=== PATIENT | male | born 1940 | race Caucasian/White ===

== ENCOUNTER 2020-02-03 14:47 | Emergency (ER) | payer MEDICARE ==
[~2020-02-03] VITALS: Ht 182.9 cm; Wt 113.4 kg
[~2020-02-03 14:47] MED LIST: ALBU90OI INH; ALUMINUM ACETATE TOP; AMOCLA875 PO; ATOR40TA PO; Adult Low Dose81 MG PO; Aspir 8181 MG PO; BENZ100A PO; CLOP75 PO; DOXY100 PO; FURO20 PO; Flonase 0.05% N16 GM; GABA300 PO; GLIP10 PO; GLIP5 PO; IBUP600 PO; IBUP800 PO; INS70/30PN SC; INSULANPEN SC; INSULIN; Klor-Con 1010 MEQ PO; LEVFLO500; LISI5 PO; METF500 PO; METO25ER PO; NYST100P TOP; OMEP40CA12 PO; Omeprazole20 M1 PO; POTA10T PO; POTCHL20ER PO; RANI150 PO; TAMS.4ER PO; Toprol Xl25 MG PO; Ventolin Soln3 ML INH
[2020-02-03 15:24] LABS: BASOPHILS ABSOLUTE AUTO 0.04 K/mm3 (0.00-0.23); BASOPHILS PERCENT AUTO 1 % (0-2); EOSINOPHILS ABSOLUTE AUTO 0.02 K/mm3 (0.00-0.68); EOSINOPHILS PERCENT AUTO 0 % (0-6); Hematocrit 40.7 % (37.0-53.0); Hemoglobin 13.4 g/dL (13.5-17.5); IMMATURE GRAN ABSOLUTE AUTO 0.02 K/mm3 (0.00-0.10); IMMATURE GRAN PERCENT AUTO 0 % (0-1); LYMPHOCYTES PERCENT AUTO 17 % (21-46); MONOCYTES ABSOLUTE AUTO 0.57 K/mm3 (0.16-1.47); MONOCYTES PERCENT AUTO 9 % (4-13); Mean Corpuscular HGB 32.7 pg (26.0-34.0); Mean Corpuscular HGB Conc 32.9 g/dL (31.5-36.5); Mean Corpuscular Volume 99 fL (80-100); Mean Platelet Volume 11.5 fL (9.1-12.4); NEUTROPHILS ABSOLUTE AUTO 4.41 K/mm3 (1.96-9.15); NEUTROPHILS PERCENT AUTO 73 % (41-73); Platelet Count 155 K/mm3 (150-400); RDW Coefficient Variation 15.3 % (11.7-14.2); RDW Standard Deviation 56.7 fL (35.1-46.3); White Blood Cell Count 6.06 K/mm3 (4.00-11.30)
[2020-02-03 15:37] LABS: Alanine Aminotransfer (ALT/SGP 15 U/L (12-78); Albumin, Blood 2.6 g/dL (3.4-5.0); Albumin/Globulin Ratio 0.6 (0.8-1.8); Alk Phos 158 U/L (50-136); Anion Gap 7 mmol/L (6-16); Aspartate Aminotrans (AST/SGOT 28 U/L (12-37); Bilirubin, Total 1.2 mg/dL (0.1-1.0); Blood Urea Nitrogen 20 mg/dL (8-24); Bun/Creatinine Ratio 19.4 (12.0-20.0); CO2, Blood 23 mmol/L (21-32); Calcium, Blood 8.7 mg/dL (8.5-10.1); Chloride, Blood 111 mmol/L (98-108); Creatinine, Blood 1.03 mg/dL (0.60-1.20); Globulin, Blood 4.1 g/dL (2.2-4.0); Glomerular Filtration Rate >60 (60-); Glucose, Blood 135 mg/dL (70-99); Potassium, Blood 4.3 mmol/L (3.5-5.5); Sodium, Blood 141 mmol/L (136-145); Total Protein, Blood 6.7 g/dL (6.4-8.2)
== END 2020-02-03 18:23 | disposition home or self-care (01) ==
LOC: ER 14:47
PROVIDERS: Emergency Medicine
DX: E11.649 Type 2 diabetes mellitus with hypoglycemia without coma (principal); I25.10 Atherosclerotic heart disease of native coronary artery without angina pectoris; I48.91 Unspecified atrial fibrillation; I10 Essential (primary) hypertension; K21.9 Gastro-esophageal reflux disease without esophagitis; E66.9 Obesity, unspecified; Z79.4 Long term (current) use of insulin; Z79.899 Other long term (current) drug therapy; Z79.02 Long term (current) use of antithrombotics/antiplatelets; Z79.82 Long term (current) use of aspirin; Z88.1 Allergy status to other antibiotic agents; Z95.5 Presence of coronary angioplasty implant and graft
CPT/HCPCS: 80053; 82947; 85025; 93005; 93010; 94640; 99284-25

== ENCOUNTER 2020-02-26 23:34 | Inpatient (IN) | payer MEDICARE ==
[~2020-02-26] VITALS: Ht 165.1 cm; Wt 147.0 kg
[~2020-02-26 23:34] MED LIST changes: +ASPI325 PO; -Aspir 8181 MG PO; -Toprol Xl25 MG PO
[2020-02-27 00:09] LABS: BASOPHILS ABSOLUTE AUTO 0.07 K/mm3 (0.00-0.23); BASOPHILS PERCENT AUTO 1 % (0-2); EOSINOPHILS ABSOLUTE AUTO 0.43 K/mm3 (0.00-0.68); EOSINOPHILS PERCENT AUTO 5 % (0-6); Hematocrit 41.7 % (37.0-53.0); Hemoglobin 13.6 g/dL (13.5-17.5); IMMATURE GRAN ABSOLUTE AUTO 0.02 K/mm3 (0.00-0.10); IMMATURE GRAN PERCENT AUTO 0 % (0-1); LYMPHOCYTES ABSOLUTE AUTO 1.74 K/mm3 (0.84-5.20); LYMPHOCYTES PERCENT AUTO 20 % (21-46); MONOCYTES ABSOLUTE AUTO 1.01 K/mm3 (0.16-1.47); MONOCYTES PERCENT AUTO 12 % (4-13); Mean Corpuscular HGB 32.8 pg (26.0-34.0); Mean Corpuscular HGB Conc 32.6 g/dL (31.5-36.5); Mean Corpuscular Volume 101 fL (80-100); Mean Platelet Volume 11.6 fL (9.1-12.4); NEUTROPHILS PERCENT AUTO 63 % (41-73); Platelet Count 180 K/mm3 (150-400); RDW Coefficient Variation 15.4 % (11.7-14.2); RDW Standard Deviation 56.7 fL (35.1-46.3); Red Blood Cell Count 4.15 M/mm3 (4.30-5.90); White Blood Cell Count 8.77 K/mm3 (4.00-11.30)
[2020-02-27 00:32] LABS: Albumin, Blood 3.1 g/dL (3.4-5.0); Albumin/Globulin Ratio 0.7 (0.8-1.8); Bilirubin, Total 1.2 mg/dL (0.1-1.0); Bun/Creatinine Ratio 24.2 (12.0-20.0); Calcium, Blood 8.8 mg/dL (8.5-10.1); Creatinine, Blood 1.32 mg/dL (0.60-1.20); Globulin, Blood 4.5 g/dL (2.2-4.0); Potassium, Blood 5.9 mmol/L (3.5-5.5); Total Protein, Blood 7.6 g/dL (6.4-8.2)
[2020-02-27 00:53] LABS: C-Reactive Protein, High Sens. 15.6 mg/L (0.000-3.000)
[2020-02-27 01:45] LABS: Source, Urine Catheter
[2020-02-27 01:47] LABS: Bilirubin, Urine Neg (Neg); Blood, Urine 5+ (Neg); Glucose Qualitative, Urine Neg (Neg); Ketones, Urine Neg (Neg); Leukocyte Esterase, Urine 1+ (Neg); Nitrite, Urine Neg (Neg); Protein, Urine 2+ (Neg); Specific Gravity, Urine 1.025 (1.003-1.022); Urobilinogen, Urine 1+ (Normal)
[2020-02-27 01:52] LABS: Appearance, Urine Hazy (Clear); Color, Urine Yellow (P-Yellow)
[2020-02-27 01:53] LABS: Bacteria Rare /hpf; Red Blood Cells, Urine TNTC /hpf (0-2); Squamous Epithelial Cells Not Seen /hpf (Few)
[2020-02-27 09:32] LABS: Albumin/Globulin Ratio 0.8 (0.8-1.8); Bilirubin, Total 1.3 mg/dL (0.1-1.0); Bun/Creatinine Ratio 25.6 (12.0-20.0); Calcium, Blood 9.2 mg/dL (8.5-10.1); Creatinine, Blood 1.29 mg/dL (0.60-1.20); Potassium, Blood 4.7 mmol/L (3.5-5.5)
[2020-02-27 13:02] LABS: Troponin I 0.017 ng/mL (0.000-0.040)
[2020-02-27 14:26] LABS: BASOPHILS ABSOLUTE AUTO 0.04 K/mm3 (0.00-0.23); BASOPHILS PERCENT AUTO 0 % (0-2); EOSINOPHILS ABSOLUTE AUTO 0.32 K/mm3 (0.00-0.68); EOSINOPHILS PERCENT AUTO 4 % (0-6); Hematocrit 40.8 % (37.0-53.0); Hemoglobin 13.5 g/dL (13.5-17.5); IMMATURE GRAN ABSOLUTE AUTO 0.02 K/mm3 (0.00-0.10); IMMATURE GRAN PERCENT AUTO 0 % (0-1); LYMPHOCYTES ABSOLUTE AUTO 1.56 K/mm3 (0.84-5.20); LYMPHOCYTES PERCENT AUTO 17 % (21-46); MONOCYTES ABSOLUTE AUTO 1.04 K/mm3 (0.16-1.47); MONOCYTES PERCENT AUTO 12 % (4-13); Mean Corpuscular HGB 33.2 pg (26.0-34.0); Mean Corpuscular HGB Conc 33.1 g/dL (31.5-36.5); Mean Corpuscular Volume 100 fL (80-100); Mean Platelet Volume 11.9 fL (9.1-12.4); NEUTROPHILS ABSOLUTE AUTO 6.01 K/mm3 (1.96-9.15); NEUTROPHILS PERCENT AUTO 67 % (41-73); Platelet Count 170 K/mm3 (150-400); RDW Coefficient Variation 15.5 % (11.7-14.2); Red Blood Cell Count 4.07 M/mm3 (4.30-5.90); White Blood Cell Count 8.99 K/mm3 (4.00-11.30)
--- NOTE | 2020-02-27 15:26 | NUR ---
SHIFT SUMMARY AT 0900 DR. AREVALO NOTIFIED OF HYPOTENSION AND LASIX HELD. AM BP 85/53, RECHECK AT NOON 97/55. DR. CARRASCO NOTIFIED IN AFTERNOON ROUNDS, NO NEW ORDERS. CURRENT BP 86/56, WILL CONTINUE TO MONITOR. PATIENT WAKES TO VERBAL STIMULI, FATIGUED, BUT NO OTHER SYMPTOMS. PCU GRID OPERATOR REPORTS THAT TELE IS ARTIFACT ONLY, CARY AWARE. TELE REMAINS IN PLACE, DUE TO CHF EXACERBATION. WIRES AND LEADS REPLACED AND TRIED IN VARIOUS POSITIONS WITHOUT GOOD RESULTS. SUSPECT THIS IS DUE TO BODY HABITUS, AND EDEMA.
[2020-02-27 17:06] LABS: Troponin I 0.025 ng/mL (0.000-0.040)
[2020-02-28 04:45] LABS: Hematocrit 40.5 % (37.0-53.0); Hemoglobin 13.4 g/dL (13.5-17.5); Mean Corpuscular HGB Conc 33.1 g/dL (31.5-36.5); Mean Corpuscular Volume 100 fL (80-100); Mean Platelet Volume 11.1 fL (9.1-12.4); Platelet Count 171 K/mm3 (150-400); RDW Coefficient Variation 15.5 % (11.7-14.2); RDW Standard Deviation 56.7 fL (35.1-46.3); Red Blood Cell Count 4.06 M/mm3 (4.30-5.90); White Blood Cell Count 9.49 K/mm3 (4.00-11.30)
[2020-02-28 05:06] LABS: Anion Gap 5 mmol/L (6-16); Blood Urea Nitrogen 35 mg/dL (8-24); Bun/Creatinine Ratio 25.2 (12.0-20.0); CO2, Blood 25 mmol/L (21-32); Calcium, Blood 9.2 mg/dL (8.5-10.1); Chloride, Blood 112 mmol/L (98-108); Creatinine, Blood 1.39 mg/dL (0.60-1.20); Glomerular Filtration Rate 52 (60-); Glucose, Blood 123 mg/dL (70-99); Magnesium, Blood 2.1 mg/dL (1.6-2.4); Potassium, Blood 4.9 mmol/L (3.5-5.5); Sodium, Blood 142 mmol/L (136-145)
--- NOTE | 2020-02-28 07:16 | NUR ---
SHIFT SUMMARY PATIENT ALERT AND ORIENTED X3. WAS NOT EASILY DIRECTABLE AND NOT INTERESTED IN LEARNING OR BEING EDUCATED ABOUT HIS CONDITION. HE HAS BEEN CALLING OUT FREQUENTLY OVERNIGHT AND NOT USING HIS CALL LIGHT WHEN HE NEEDS SOMETHING. PATIENT REPORTS HAVING DIFFICULTY BREATHING, EVEN WHEN SITTING FULLY ERECT IN BED AND BEING ENCOURAGED TO FOCUS ON TAKING ONE BREATH AT A TIME. IV PATENT AND FLUSHED. BED IN LOWEST POSITION WITH WHEELS LOCKED. CALL LIGHT WITHIN REACH. REPORT GIVEN TO ONCOMING RN.
[2020-02-28] MEDS ORDERED: CEPH500 PO (20:22)
[2020-02-29 05:54] LABS: Albumin, Blood 2.6 g/dL (3.4-5.0); Anion Gap 8 mmol/L (6-16); Blood Urea Nitrogen 38 mg/dL (8-24); Bun/Creatinine Ratio 22.5 (12.0-20.0); CO2, Blood 23 mmol/L (21-32); Calcium, Blood 8.8 mg/dL (8.5-10.1); Chloride, Blood 112 mmol/L (98-108); Creatinine, Blood 1.69 mg/dL (0.60-1.20); Glomerular Filtration Rate 42 (60-); Glucose, Blood 88 mg/dL (70-99); Phosphorus, Blood 4.3 mg/dL (2.5-4.9); Potassium, Blood 4.9 mmol/L (3.5-5.5); Sodium, Blood 143 mmol/L (136-145)
--- NOTE | 2020-02-29 08:19 | NUR ---
ACTUARIAL ASSISTANT SUMMARY Patient again continues to suffer from hypotension. Twice overnight, patient was found to have blood pressures in the 70's. 250 ml bolus resolved initial pressure early in the evening, then RAPID RESPONSE was called later in the evening when pressure dropped. urinary output overnight was less than 200 ml. Creatinine trending up since admit. GFR trending down. Palliative care consult ordered for later today with patient and (hopefully ) spouse.
--- NOTE | 2020-02-29 14:51 | NUR ---
Pal Care referral received with request to contact pt's to discuss jail goals and code status/advanced care planning due to pt's confusion, lack of insight as to why he is here. EMR reviewed and case conferenced with pt's RN. RN states pt is a one person assist to transfer and appears to be heavy care for one cg () at home. RN also notes pt's noncompliance with his CPAP as recommended by Dr and RT. Jacquard Fixer notes reviewed. Patient had been referred to [facility] services prior to admission and current plan is that those HH services will be resumed once pt is medically ready for d/c home. I attempted to contact pt's , Amaya at the number listed in EMR. This number was disconnected. Second number obtained from pt's RN [phone] from pt's whiteboard in room. T/c to that number and VM left. # did not identify pt's as phone recipient so I did not leave any names or details other than a request for a return call. I will try again tomorrow. When I attempted to visit pt earlier today, he was receiving care per RN and SECURITIES TRADER. I will try to make contact with and pt again tomorrow.
[2020-02-29 18:11] LABS: Vancomycin, Trough 19.9 ug/mL (5.0-10.0)
--- NOTE | 2020-02-29 18:33 | NUR ---
SHIFT SUMMARY- PT HAS BEEN ASLEEP MOST OF THIS SHIFT. REFUSED TO WORK WITH PT TODAY. HE HAS A MANNING WHICH IS PATIENT AND DRAINING. LOW URINE OUTPUT. HE HAS PITTING EDEMA THROUGHOUT. HIS BLOOD PRESSURES HAVE BEEN LOW. HE IS RECIEVING IV FLUIDS. CONSULTED, ORDERS PLACED. PT IS ON HUMIDIFIED O2 VIA NASAL CANNULA. HE RECIEVED CHEST X-RAYS THIS EVENING.
[2020-03-01 06:16] LABS: Anion Gap 9 mmol/L (6-16); Blood Urea Nitrogen 42 mg/dL (8-24); Bun/Creatinine Ratio 25.3 (12.0-20.0); CO2, Blood 22 mmol/L (21-32); Calcium, Blood 8.8 mg/dL (8.5-10.1); Chloride, Blood 112 mmol/L (98-108); Creatinine, Blood 1.66 mg/dL (0.60-1.20); Glomerular Filtration Rate 43 (60-); Glucose, Blood 97 mg/dL (70-99); Magnesium, Blood 2.1 mg/dL (1.6-2.4); Potassium, Blood 4.6 mmol/L (3.5-5.5); Sodium, Blood 143 mmol/L (136-145); Vancomycin, Random 25.7 ug/mL
--- NOTE | 2020-03-01 07:24 | NUR ---
NEW VEHICLE SALES CONSULTANT SUMMARY Patient awake all night again. Very anxious and uncomfortable. Mostly his scrotum. He kept complaining his nose was stuffed, so order received for [place] nasal spray, and administered for relief. Patient allowed once, then said it burnt and wouldn't try any more. Several times he yelled out that he "had to sit up" when several staff members had just repositioned him up as high as he could go. This RN explained to him that the only way he would feel like he could breath, was to wear the CPAP. After many requests, the patient agreed to try again. RN and RT were with patient for at least 20 minutes encouraging patient before he finally said no. Urine output was 1200 over night! Color now more that of tea instead of cola. Scrotum floated on pillows, Ice packs wrapped and applied , tylenol given all no no avail when patient insists on sitting straight up in bed. At the end of the shift, he was told that he had to lay down on his side and get off his scrotum in order for them to not hurt as bad. Also, to get off his buttocks. Patient agreed and with the assistance of several pillows, was made comfortable enouogh to stay in that position for approx 30 minutes.
--- NOTE | 2020-03-01 11:23 | NUR ---
Contacted this am, per Dr request to discuss goals of care and Code Status. We had a very productive conversation with asking good questions and reporting on her previous conversations re: what he would like. We discussed his reluctance to do some treatments that would be beneficial to him in getting better, ie CPAP use and physical therapy. We discussed his heart and kidney impairment and s/s. states they have spoken about some treatments and that she does not believe he would ever want to be ventilated and does not believe he would consent to dialysis if his kidney function does not improve with current tx. is coming in to visit and will talk with her further and then asked me to join them afterwards. I recommended documenting his wishes clearly for future guidance in his care. She stated he is "tired of being sick and tired of all the stuff he has to do to try and not be sick". Plan to meet with both pt and later today. Will update RN on my conversation with and update Dr after our meeting later today when pt's wishes/goals more clear.
--- NOTE | 2020-03-01 11:38 | NUR ---
VALID PH # FOR RAYO IS [phone]. NUMBER LISTED ON FACE SHEET IS DISCONNECTED. Case conferenced with pt's RN and this am. Delivered reading materials to pt's room as agreed with . Pt undergoing an echo at this time. Nephrology consult completed and second echo ordered. Pt now on fluid restrictions and new med orders noted. Plan remains to return after arrives and speaks with her about the level and intensity of care that he would like. also plans to speak with today if possible.
--- NOTE | 2020-03-01 12:00 | NUR ---
Echocardiogram completed.
--- NOTE | 2020-03-01 13:42 | NUR ---
Met with at bedside and pt sitting up finishing his lunch. Pt is extremely kake but if he can understand he is participatory in the conversation. He will frequently answer, "whatever she says" to indicate he would like his to decide but also is able to express his thoughts/wishes. I returned to room after RN notified my of 's visit. I gave them time to discuss pt's wishes before I arrived as planned. Pt and I reviewed pt's wishes and willingness to participate or accept care as recommended by Drs. He has not used his CPAP for years (no longer has one), has not used & does not have recommended home O2 and has not taken his PO medications for many months, despite several severe and chronic health concerns. When asked if he would reconsider taking medications to improve his s/s or health pt shrugged his shoulders. He is very forgetful and has obvious cognitive impairment. He will ask every few seconds for more water, even after repeated explanations of 1000ml fluid restriction ordered today. Pt denies severe pain but reports mild to moderate discomfort "all over". He appears sl anxious re: water restriction but is calm otherwise. He ate 40-50% of his lunch. When we started discussing very specific treatments or interventions re: advanced care planning pt was able to indicate that he did not want any rescusitative efforts employed if we were to find him without a heart beat or if he could not breathe on his own. He said, "I'd just have to be brought back over and over". He is agreeable to continue the current plan of care and "fine tuning" to support his heart and kidneys. He does not want CPR, ventilation, tube feedings or dialysis. I asked in multiple ways about these interventions and he and his both indicated they do not want anything other than current limited treatment as outlined on the POLST that we completed. Dr Cordon arrived as we were finishing the POLST and reviewed all of the above in even more detail. We both encouraged the pt to allow PT/OT and participate for a better quality of life. We asked him about CPAP use and pt still indicates he is not interested in that. Amaya is pt's primary CG and has help from her daughter. She is hopeful that HH with [facility] can be reordered on D/c home. and I both spoke to her about reevaluating and potentially opting for comfort care or hospice if pt does not improve or gets worse even with current attmepts to improve kidney, heart and resp function. verbalized good understanding. She and I had spoken about this before Drs visit and further after dr visit. Pt does not have a hospital bed at home but I would recommend that whether he goes home with HH or hospice. He does not have O2 and is requiring it here. 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 states "I have to roll him around a lot" for bed mobility and bedpan use. Pt is morbidly obese & has significant ascites & LE edema. She brought him to the ER due to respiratory distress and he had fluid in his lungs jessy also. He had been off of all prescribed medications for an untold amount of time. His appears very fatigued. She is not very big and appears equally elderly. Agreed we would monitor and hope for improvement over the next couple of days and then re-evaluate goals and plans for care. Booklet, Hard Choices for [place] [facility] given to Amaya for review and to generate quesions of care providers. Copy of New POLST sent to Medical records for scanning into EMR, copy placed on chart and original given to Amaya to take home.
--- NOTE | 2020-03-01 16:52 | NUR ---
SHIFT SUMMARY- PT SLEPT FOR MUCH OF THIS SHIFT. PALATIVE CARE SPOKE WITH PT AND HIS . PT WAS SWITCHED FROM FULL CODE TO DNR, PURPLE WRIST BAND IN PLACE. HE CONTINUED TO HAVE LOW BP. EXTRA DOSE OF ALBUMIN GIVEN AND MIDODRINE INCREASED. HE RECIEVED AN ECHO, A CT OF THE CHEST, AND KIDNEY ULTRASOUND PREFORMED THIS MORNING. CARDIOLOGY WAS CONSULTED CHARGE NURSE CALLED AND SPOKE WITH DR. MORENO. 24 HOUR URINE COLLECTED AND SENT TO LAB.
[2020-03-01 18:27] LABS: Protein, Urine Quantitative 17.9 mg/dL (0.0-11.9)
--- NOTE | 2020-03-01 19:02 | NUR ---
TRANSFER IN PT ARRIVED TO ICU 11 VIA BED FROM MEDICAL FLOOR. PT IS LETHARGIC, BUT AROUSES TO VERBAL STIMULI. PT ALERT TO SELF. PT ON 2L O2 NC. VITAL SIGNS STABLE. LEFT BKA NOTED. WILL CONTINUE TO MONITOR AND REPORT OFF TO ONCOMING RN.
--- NOTE | 2020-03-01 19:17 | NUR ---
PT TRANSFERED TO ICU. REPORT GIVEN TO TRACY SHIELDS. LEFT UNIT AT 1850.
--- NOTE | 2020-03-01 23:20 | NUR ---
CARE ASSUMED 1900 PT SLEEPING IN BED AND RECEIVING OXYGEN, 2 L VIA NC. VSS. PTS HR IS UNABLE TO BE READ BY MONITOR (LEADS/MONITOR LINES REPLACED AND ATTEMPTED TO "RELEARN" ON MONITOR WITH NO CHANGE) THEREFORE, HR READINGS RECEIVED FROM [facility] ( HR 60-82). PT HAS AFIB WITH BBB. TRACY SHIELDS RECIEVED ORDERS FROM DR. EDDY TO START BUMEX GTT AT .25 MG/HR TO MAINTAIN MAP > 65, CALLED TO UPDATE ON ORDERS, NO NEW ORDERS RECIEVED. BUMEX DRIP STARTED. PT ABLE TO FOLLOW DIRECTION, STATES BEING IN [place] BUT UNABLE TO STATE THAT HE IS AT THE HOSPITAL, AND PT APPEARS TO USE HUMOR TO DEFLECT ANSWERING DIRECT QUESTIONS. WHEN ASSESSING ORIENTATION, ASKED PT IF HE COULD STATE THE PRESIDENT, PT STATES HE HAS NOT MET HIM YET. Luis ALVAREZ, REDNESS IN BILATERAL ARMPITS AND IN PANNUS (NYSTATIN APPLIED), SCROTAL EDEMA, AND OVER ALL PTS SKIN HAS REDNESS. MANNING CATH IN PLACE. PT REFUSED TO USE CPAP AT NIGHT. PT STATES HE WOULD LIKE TO SLEEP AND ABLE TO MAKE SMALL REPOSITIONS IN BED. CALL LIGHT IN REACH, INSTRUCTED ON HOW TO USE. SPOKE TO PTS , UPDATED ON PT STATUS AND ALL QUESTIONS ANSWERED.
[2020-03-02 04:04] LABS: Hematocrit 39.7 % (37.0-53.0); Hemoglobin 12.9 g/dL (13.5-17.5); Mean Corpuscular HGB 32.6 pg (26.0-34.0); Mean Corpuscular HGB Conc 32.5 g/dL (31.5-36.5); Mean Corpuscular Volume 100 fL (80-100); Mean Platelet Volume 11.7 fL (9.1-12.4); Platelet Count 153 K/mm3 (150-400); RDW Coefficient Variation 15.8 % (11.7-14.2); RDW Standard Deviation 57.7 fL (35.1-46.3); Red Blood Cell Count 3.96 M/mm3 (4.30-5.90); White Blood Cell Count 7.58 K/mm3 (4.00-11.30)
[2020-03-02 04:31] LABS: Albumin, Blood 3.1 g/dL (3.4-5.0); Anion Gap 9 mmol/L (6-16); Blood Urea Nitrogen 43 mg/dL (8-24); Bun/Creatinine Ratio 26.1 (12.0-20.0); CHOL/HDL RATIO 3.1; CO2, Blood 21 mmol/L (21-32); Calcium, Blood 8.6 mg/dL (8.5-10.1); Chloride, Blood 112 mmol/L (98-108); Cholesterol 104 mg/dL (50-200); Creatinine, Blood 1.65 mg/dL (0.60-1.20); Glomerular Filtration Rate 43 (60-); Glucose, Blood 88 mg/dL (70-99); HDL Cholesterol 34 mg/dL (>39); LDL/HDL RATIO 1.7; Low Density Lipoprotein Chol 57 mg/dL (0-110); Phosphorus, Blood 3.7 mg/dL (2.5-4.9); Potassium, Blood 4.7 mmol/L (3.5-5.5); Sodium, Blood 142 mmol/L (136-145); Triglycerides 63 mg/dL (30-160); Very Low Density Lipoprot Chol 12 mg/dL (6-32)
[2020-03-02 04:59] LABS: PCO2 Arterial 35.7 mmHg (35-45); PO2 Arterial 74.8 mmHg (80-100); pH Blood Arterial 7.37 (7.35-7.45)
--- NOTE | 2020-03-02 06:32 | NUR ---
SHIFT SUMMARY PT RESTING T/O SHIFT AND ABLE TO MAKE SMALL POSITIONAL CHANGES IN BED. VSS T/O SHIFT. IN TO SEE PT AND NO NEW ORDERS RECIEVED. TOTAL UO DURING SHIFT IS 950. PT TOLERATED BUMEX DRIP WELL, MAPS REMAINED > 65. PT CONTINUES TO BE ON 2 L VIA NC AND SPO2 > 92%. PT CONTINUES TO BE CONFUSED AT TIME BUT EASILY REORIENTED AND FOLLOWS DIRECTIONS/COOPERATIVE. CALL LIGHT WITH IN REACH AND PT CALLS OUT FROM BED (HAS NO USED CALL LIGHT AFTER TEACHING MULTIPLE TIMES). WILL REPORT TO ONCOMING SHIFT.
--- NOTE | 2020-03-02 10:29 | NUR ---
PT IS EASILY AROUSED. IS CONFUSED TO DATE AND FORGETFUL. IV GTTS NOTED. AND VS STABLE WITH NOTED NAP. MANNING PATENT, TAKING PO WELL. PT IS SOMEWHAT UNMOTIVATED BUT IS PLEASANT.
--- NOTE | 2020-03-02 17:56 | NUR ---
PT UO NOTED AT GREATER THAN 900 THIS SHIFT. BUMEX GTT REMAINS AT 0.25MG.HR AND VS NOTED W/O TITRATION. PT HAS RESTED WELL W/O RESP DISTRESS EXCETP FOR POSTION CHANGES AND BOOSTING UP IN BED. PT REMAINS COOP AND PLEASANT BUT SL CONFUSION YET. UP TO BEDPAN AT THIS TIME AND WILL FOLLOW FOR RESULTS. PT REMAINS IN AFIB.
[2020-03-02 20:24] LABS: Vancomycin, Trough 26.4 ug/mL (5.0-10.0)
--- NOTE | 2020-03-02 22:19 | NUR ---
CARE ASSUMED 1900 PT AWAKE IN BED, WATCHING TV. PT CONFUSED AT TIME BUT A/O TO BEING AT HOSPITAL IN ORIENT BUT CANNOT STATE HOSPITALS NAME. CURRENTLY ON 2 L VIA NC, SPO2 > 92%. DIMINISHED LUNG SOUNDS IN THE BASES. PT ON BUMEX DRIP 0.25 MG/HR, MAP > 65. MANNING CATH IN PLACE WITH 400 MLS OF LIGHT YELLOW URINE IN BAG. PT PROVIDES MINIMAL ASSISTANCE DURING TURNS AND REQUIRES LIFT FOR POSITIONAL CHANGES. VSS. ICE CHIPS AT BEDSIDE THAT PT REQUEST'S FREQUENTLY.
[2020-03-03 04:17] LABS: Hematocrit 39.3 % (37.0-53.0); Hemoglobin 12.7 g/dL (13.5-17.5)
[2020-03-03 04:35] LABS: Albumin, Blood 3.2 g/dL (3.4-5.0); Anion Gap 10 mmol/L (6-16); Blood Urea Nitrogen 42 mg/dL (8-24); Bun/Creatinine Ratio 27.8 (12.0-20.0); CO2, Blood 23 mmol/L (21-32); Calcium, Blood 8.4 mg/dL (8.5-10.1); Chloride, Blood 111 mmol/L (98-108); Creatinine, Blood 1.51 mg/dL (0.60-1.20); Glomerular Filtration Rate 48 (60-); Glucose, Blood 98 mg/dL (70-99); Magnesium, Blood 1.9 mg/dL (1.6-2.4); Phosphorus, Blood 3.4 mg/dL (2.5-4.9); Potassium, Blood 4.2 mmol/L (3.5-5.5); Sodium, Blood 144 mmol/L (136-145)
[2020-03-03 04:41] LABS: Vancomycin, Trough 24.2 ug/mL (5.0-10.0)
--- NOTE | 2020-03-03 06:01 | NUR ---
SHIFT SUMMARY. PT FOLLOWING DIRECTIONS BUT STILL UNABLE TO STATE WHICH HOSPITAL HE IS IN. PT ASKED TO BE LEFT ALONE AROUND 4 AM SO HE COULD SLEEP. BUMEX DRIP INFUSING AT 0.25 MG/HR, TOTAL URINE OUTPUT DURING SHIFT 1450 MLS. PTS MAP > 65 T/O SHIFT. PT CONTINUES TO BE ON 2 L VIA NC, TOLERATING WELL SPO2 > 92%. ASKED PT IF HE WOULD LIKE TO USE CPAP MACHINE BUT PT REFUSED. CPAP MACHINE AT BEDSIDE. AFTER MULTIPLE ATTEMPTS TO REPOSITION PT CONTINUES TO LEAN TO LEFT SIDE. VSS, AFIB WITH BBB T/O SHIFT. MANNING CATH IN PLACE. PT ASKS FOR ICE CHIPS EVERY 30 MINUTES AND STATES HE HAS "DRY MOUTH." HACKING NONPRODUCTIVE COUGH AND ATTEMPTS TO PICK AT NOSE DUE TO NARES BEING DRY. WHEN OFFERED SALINE SPRAY PT DOES NOT TOLERATE WELL AND REFUSES TO USE IT. O2 HAS BEEN HUMIDIFIED TO DECREASE NASAL CONGESTION. CALL LIGHT WITHIN REACH WHICH PT HAS NOT BEEN USING. INSTEAD PT CALLS OUT TO STAFF FROM BED. WILL REPORT TO ONCOMING SHIFT.
--- NOTE | 2020-03-03 08:00 | NUR ---
Receievd report from Glenroy RN. Patient was sleeping through report and awakened easly shorly after to verbal stimuli. He states he likes only to left side and i explauined whe it is a bad idea due to skin breakdown and we positioned supine for breakfast. He continuely ass for water and ice chips and explained in depth why that is not going to happen r/t 1 liter fluid restriction. Set him up for breakfast and he tolerated about 30%. He is on humidified 2L O2 nad sats 94%. he has santa catheter draing to gravity light guzman colored urine. He is a LBKA. he has 4+ scrotal edema that is slinged with pillow case. I place gel in his nose as he states its dry and has been pickingh it and making it bleed and advised him not top do any more. Washed hands that had blood all over them from picking. He has 18ga LFA IV dressing intact and site needing to be cleaned and infusing Bumex gtt at 0.25mg/hr and NS TKO. He is A-fib with BBB.
--- NOTE | 2020-03-03 09:42 | NUR ---
Patient currently resting, he remains on humidified 2L O2 via NC and sats >90%. He was c/p hip and butt pain so repositioned to right side and he has been comfortable since. VSS, See EMR. Bumex gtt continues at 0.25 mg/hr.
--- NOTE | 2020-03-03 12:38 | NUR ---
Patient has been resting off and on. He remains on 2L Humidified O2 via NC. He remains on Bumex gtt at 0.25 mg/hr and has been consistent approx. 100 ml/hr, with minimal intake. Repositioned patient and re slung scrotum. preparing him for lunch.
--- NOTE | 2020-03-03 13:40 | NUR ---
PT TRANSFERED FROM ICU TO PCU 4 PT UNABLE TO MOVE FROM BED TO BED AND WAS TRANSFERRED USING SLIDE SHEET AND STAFF ASSISTANCE A&O X 4 VS STABLE, PT ON 2L OF O2 VIA NASAL CANNUAL WITH HUMIDIFIER BOWEL SOUNDS PRESENT AND ACTIVE LUNG SOUNDS CRACKLES IN BILATERAL UPPER LOBES AND DIMINISHED IN THE BILATERAL LOWER LOBES POWERGLIDE WITH BUMEX RUNNING AT 2.5ML/HR S1 AND S2 HEART SOUNDS PRESENT, INSURANCE RATER IN PLACE MANNING CATHETER IN PLACE AND DRAINING FLUID RESTIRCTION 600ML DAY SHIFT AND 400ML NOC PER 24 HOURS ACCOMPANIED PATIENT DURING TRANSFER RECTIFYING ATTENDANT REPORTS PT HAVING HX OF NONCOMPLIANCE WITH MEDICATIONS OR TREATMENTS
--- NOTE | 2020-03-03 13:40 | NUR ---
Reported off to Hedy SHIELDS and patient transferred over in ICU bed and room lift transfer, meds and personal belongings moved with patient. at bedside. prior to transfer used [place] spray and flushe nasal cavity., removed large blood clots.
--- NOTE | 2020-03-03 17:00 | NUR ---
PROGRESS VS STABLE, PT ON O2 2L/MIN PT A&OX4, CBG STABLE (NO INSULIN INDICATED THIS SHIFT) NASAL SPRAY ADMINISTERED TO HELP WITH DRY, BLEEDING NOSTRILS MANNING DRAINING, EMPTIED 500ML, DARK YELLOW, CLEAR URINE BUMEX RUNNING WITH NS AT 2.5ML/HR PT NEEDS TO BE REPOSITIONED FREQUENTLY, LIFT SHEET IN PLACE FLUID RESTRICTION 1000ML/24HRS PT HAS BEEN RESTING MOST OF THE AFTERNOON
--- NOTE | 2020-03-03 18:12 | NUR ---
SHIFT SUMMARY PT TRANSFERRED AROUND 1340 FROM ICU TO PCU4. LEFT BKA BUMEX DRIP 2.5ML/HR FOR FLUID OVERLOAD. LUNG SOUNDS: CRACKLES BILATERAL AND DIMINISHED BILATERAL LOWER AND ON 2L O2 WITH HUMIDIFIER, NASAL SPRAY FOR DRINESS HEAR: AFIB, S1 S2 PRESENT, PROJECT BUILDER IN USE MANNING CATHETER IS IN PLACE AND DRAINING WELL. POWERGLIDE IN PLACE AND INFUSING IN RIGHT ARM. PT NEEDS ENCOURAGEMENT TO ACT INDEPENDENTLY WITHIN HIS ABILITIES PT DOES HAVE SWELLING/EDEMA IN THE SCROTUM AND LEG. PT IS ON A FLUID RESTRICTION, 1000ML/24HRS HOSE TURNER REPORTS HX OF NONCOMPLIANCE WITH MEDICATIONS OR TREATMENTS
[2020-03-04 04:31] LABS: Hematocrit 39.8 % (37.0-53.0); Hemoglobin 13.2 g/dL (13.5-17.5)
[2020-03-04 04:51] LABS: Albumin, Blood 3.3 g/dL (3.4-5.0); Anion Gap 10 mmol/L (6-16); Blood Urea Nitrogen 39 mg/dL (8-24); Bun/Creatinine Ratio 27.9 (12.0-20.0); CO2, Blood 24 mmol/L (21-32); Calcium, Blood 8.8 mg/dL (8.5-10.1); Chloride, Blood 110 mmol/L (98-108); Glomerular Filtration Rate 52 (60-); Glucose, Blood 98 mg/dL (70-99); Phosphorus, Blood 3.4 mg/dL (2.5-4.9); Potassium, Blood 3.9 mmol/L (3.5-5.5); Sodium, Blood 144 mmol/L (136-145)
--- NOTE | 2020-03-04 06:28 | NUR ---
IMPLEMENTATION ADVISOR SUMMARY PT A/O X4. MEDICATED FOR PAIN ONCE TONIGHT FOR STCROTAL PAIN. PT'S SCROTOM IS EDEMATOUS. COOL WASH CLOTH ALSO APPLIED TO THIS AREA. REPOSOITIONED THROUGHOUT THE NIGHT. SLEPT ON AND OFF. YELLS OUT SOMETIMES AND DOESN'T USE CALL LIGHT. MANNING PATENT AND DRAINING TO GRAVITY. NO ACUTE CHANGES. BED IN LOWEST POSITION, BED ALARM ON, CALL LIGHT WITHIN REACH. WILL GIVE REPORT TO ONCOMING NURSE.
--- NOTE | 2020-03-04 17:37 | NUR ---
SHIFT SUMMARY; A/A/OX3 WITH INTERMITANT FORGETFULNESS. BED REST WITH Q2 REPOSITIONING, BEDREST WITH MINIMAL ASSISTANCE FROM PT WITH REPOSITIONING. EDEMA BILATERALLY TO ARMS, ABDOMEN AND SCROTUM. MANNING CATH IN PLACE DRAINING LEONARDA URINE, 2L 02 VIA NC, REPORTS INTERMITANT SOB BUT SATS REMAINED GREATER THAN 93% THROUGHOUT SHIFT. IV BUMEX INFUSING PER ORDERS. YEAST TO MULTIPLE AREAS OF SKIN INCLUDING AXILLA, SCROTUM, AND PANUS. NYSTATIN APPLIED PER ORDERS. DEMANDING WITH CARE, YELLS MULTIPLE TIMES FROM ROOM AND REDIRECTED SEVERAL TIMES TO USE CALL LIGHT. NO ACUTE MEDICAL CHANGES DURING SHIFT, WILL CONTINUE TO MONITOR AND TREAT UNTIL CHANGE OF SHIFT.
--- NOTE | 2020-03-05 03:21 | NUR ---
SHIFT SUMMARY PT AOX3-4 WITH VSS. NO ACUTE CHANGES THIS SHIFT. PT REPOSITIONED Q2, REFUSED X1 STATING "I JUST WANT TO SLEEP." MIN ASSISTANCE FROM PT DURING REPOSITIONING. C/O SCROTAL PAIN, DISCOMFORT RELIEVED FROM REPOSITIONING AND TYLENOL. SCROTUM EDEMATOUS AND RED. MANNING CATH TO GRAVITY DRAIN; URINE CL AND LEONARDA/YELLOW IN COLOR. HAS GENERALIZED EDEMA WITH 2+ EDEMA IN GROIN, PANNUS AND ABD. BUMEX INFUSING IN JACINDA PICC, DRESSING CDI. FRANDY PO INTAKE, DENIES N/V. MAINTAINING FLUID RESTRICTION PROTOCOL, STAFF ASSISTED WITH PO INTAKE/ICE CUBES PRN. REDNESS IN SKIN FOLDS, MEDICATED PER EMAR AND KEPT DRY. PT CURRENTLY RESTING IN BED WITH NC IN PLACE AT 2L AND CALL LIGHT IN REACH. WILL CONT TO MONITOR AND GIVE REPORT TO CONCOMING RN.
--- NOTE | 2020-03-05 07:23 | NUR ---
SHIFT CHANGE REPORT GIVEN TO ALYSON ROSSI
[2020-03-05 08:31] LABS: Albumin, Blood 3.4 g/dL (3.4-5.0); Anion Gap 9 mmol/L (6-16); Blood Urea Nitrogen 41 mg/dL (8-24); Bun/Creatinine Ratio 27.9 (12.0-20.0); CO2, Blood 27 mmol/L (21-32); Calcium, Blood 9.2 mg/dL (8.5-10.1); Chloride, Blood 110 mmol/L (98-108); Creatinine, Blood 1.47 mg/dL (0.60-1.20); Glomerular Filtration Rate 49 (60-); Glucose, Blood 107 mg/dL (70-99); Phosphorus, Blood 3.4 mg/dL (2.5-4.9); Potassium, Blood 3.9 mmol/L (3.5-5.5); Sodium, Blood 146 mmol/L (136-145)
--- NOTE | 2020-03-05 17:54 | NUR ---
REPOSRT RECEIVED FROM ENID SHIELDS AFTER LUNCH TIME, NO ACUTE CHANGE PER REPORT. PT ALERT AND ORIENTED BUT FORGETFUL. VITALS STABLE PT CONTINUES ON BUMEX GTT AT 5MLS/HR. PT REPOSITIONED IN BED Q2HRS AND OFTEN SINCE PT C/O BUTTOCKS/SCROTAL PAIN. NO OTHER ISSUES ENCOUNTERED FOR THE SHIFT, PT STILL HAS 2+ PITTING EDEMA ON RLE, REMAINS ON 1L FLUID RESTRICTION, PT COMPLIANT. MANNING CATHETER DRAINING PATENT VIA GRAVITY. AT BEDSIDE MOST OF THE SHIFT. WILL REPORT TO ONCOMING SHIFT.
[2020-03-06 03:33] LABS: Hematocrit 40.7 % (37.0-53.0); Hemoglobin 13.2 g/dL (13.5-17.5)
[2020-03-06 03:50] LABS: Albumin, Blood 3.4 g/dL (3.4-5.0); Anion Gap 8 mmol/L (6-16); Blood Urea Nitrogen 41 mg/dL (8-24); Bun/Creatinine Ratio 29.9 (12.0-20.0); CO2, Blood 27 mmol/L (21-32); Calcium, Blood 9.1 mg/dL (8.5-10.1); Chloride, Blood 111 mmol/L (98-108); Creatinine, Blood 1.37 mg/dL (0.60-1.20); Glomerular Filtration Rate 53 (60-); Glucose, Blood 120 mg/dL (70-99); Phosphorus, Blood 3.2 mg/dL (2.5-4.9); Potassium, Blood 3.9 mmol/L (3.5-5.5); Sodium, Blood 146 mmol/L (136-145)
[2020-03-06 04:30] LABS: Source, Urine Catheter
[2020-03-06 04:31] LABS: Bilirubin, Urine Neg (Neg); Blood, Urine 5+ (Neg); Glucose Qualitative, Urine Neg (Neg); Ketones, Urine Neg (Neg); Leukocyte Esterase, Urine 3+ (Neg); Nitrite, Urine Neg (Neg); Protein, Urine 1+ (Neg); Specific Gravity, Urine 1.015 (1.003-1.022); Urobilinogen, Urine NORM (Normal)
[2020-03-06 04:43] LABS: Appearance, Urine Hazy (Clear); Color, Urine Yellow (P-Yellow)
[2020-03-06 04:58] LABS: Amorphous Light (0-Heavy); Bacteria Mod /hpf; Red Blood Cells, Urine 50-100 /hpf (0-2); Squamous Epithelial Cells Few /hpf (Few); White Blood Cells, Urine TNTC /hpf (0-5)
--- NOTE | 2020-03-06 05:39 | NUR ---
SHIFT SUMMARY PTP A&O TO SELF & LOCATION. PT FORGETFUL, REQUIRING FREQUENT REMINDING. PT VSS. MONITOR SHOWS AFIB, HR 80's-110. SPO2 > 92% ON 4-6L NC THIS SHIFT. PT W/ 1L FLUID RESTRICTION, ASKING FOR ICE CHIPS, DRINKS, AND "APPLES FOR MOISTURE" T/O SHIFT. FREQUENT ICE CHIPS & ORAL CARE PROVIDED W/ OUT PT SATISFACTION. PT W/ EDEMA. BUMEX GTT INFUSING PER ORDERS. PT GROIN, PANNUS, & ARM PITS RED, NYASTATIN APPLIED PER EMAR. SCROTUM SWOLLEN. WILL CONTINUE TO MONITOR & PROVIDE CARE UNTIL REPORT OFF TO DAY SHIFT RN.
[2020-03-06 07:11] LABS: BASOPHILS ABSOLUTE AUTO 0.08 K/mm3 (0.00-0.23); BASOPHILS PERCENT AUTO 1 % (0-2); EOSINOPHILS ABSOLUTE AUTO 0.25 K/mm3 (0.00-0.68); EOSINOPHILS PERCENT AUTO 3 % (0-6); Hematocrit 40.3 % (37.0-53.0); Hemoglobin 13.2 g/dL (13.5-17.5); IMMATURE GRAN ABSOLUTE AUTO 0.03 K/mm3 (0.00-0.10); IMMATURE GRAN PERCENT AUTO 0 % (0-1); LYMPHOCYTES ABSOLUTE AUTO 1.62 K/mm3 (0.84-5.20); LYMPHOCYTES PERCENT AUTO 21 % (21-46); MONOCYTES ABSOLUTE AUTO 0.97 K/mm3 (0.16-1.47); MONOCYTES PERCENT AUTO 13 % (4-13); Mean Corpuscular HGB 33.4 pg (26.0-34.0); Mean Corpuscular HGB Conc 32.8 g/dL (31.5-36.5); Mean Corpuscular Volume 102 fL (80-100); Mean Platelet Volume 11.4 fL (9.1-12.4); NEUTROPHILS ABSOLUTE AUTO 4.72 K/mm3 (1.96-9.15); NEUTROPHILS PERCENT AUTO 62 % (41-73); Platelet Count 154 K/mm3 (150-400); RDW Coefficient Variation 15.9 % (11.7-14.2); Red Blood Cell Count 3.95 M/mm3 (4.30-5.90); White Blood Cell Count 7.67 K/mm3 (4.00-11.30)
--- NOTE | 2020-03-06 11:49 | NUR ---
PT REPORTS MINOR PRODUCTIVE COUGH, FAMILY WAS CONCERNED. RN EXPLAINED THAT AFTER SPENDING DAYS IN BED AND BEING INACTIVE THAT THE PT'S LUNGS NEEDS TO BE EXERCISED, AND ACTIVE IN ORDER TO HELP PREVENT RESPIRATORY ISSUES. RN GAVE PT AN INCENTIVE SPIROMETER (IS) AND INSTRUCTIONS TO USE 10 TIMES EVERY HOUR WHILE AWAKE, OR SEVERAL TIMES DURING EACH COMMERCIAL BREAK. PT AGREED TO USE THE IS AND FAMILY VERBALLY CONVEYED UNDERSTANDING OF TECHING AND IMPORTANCE.
--- NOTE | 2020-03-06 13:22 | NUR ---
PT IS REPOSITIONED NUMEROUS TIMES FOR COMFORT. PT REMAINS WITH MANY COMPLAINTS. PT IS ENCOURAGED TO GIVE SELF WATER AND ICE CHIPS IT WILL HELP HIM MAINTAIN HIS ADLs, PT AGREES. BLINDSTITCH MACHINE OPERATOR WAS IN TO ROOM WITH HOME HEALTH INFO, IS NOT CURRENTLY IN ROOM. ORAL CARE PERFORMED
--- NOTE | 2020-03-06 16:39 | NUR ---
SHIFT NOTE PT HAS BEEN RESTING WELL IN BED T/O THE SHIFT. PT IS ANXIOUS AND AGITATED FOR THE ENTIRE SHIFT, PT VERY FORGETFUL SHOUTS OUT NEEDS OVER AND OVER WHILE THEY ARE BEING MET THEN STS "I KNOW" WHEN REMINDED THAT STAFF IS CURRENTLY PERFORMING TASK HE ASKED OF THEM. BUMEX HAS BEEN TITRATED TO 10ML/HR. VSS. S/O AND PT HAVE BEEN EDUCATED AND UPDATED PER MD AND GROUNDSMAN, S/O CONTINUES TO STATE NEEDS GROUNDSMAN HAS LEFT A NOTEBOOK SO THAT S/O CAN LEAVE ANY QUESTIONS OR CONCERNS FOR STAFF.
[2020-03-07 04:11] LABS: Albumin, Blood 3.1 g/dL (3.4-5.0); Anion Gap 7 mmol/L (6-16); Blood Urea Nitrogen 45 mg/dL (8-24); Bun/Creatinine Ratio 28.7 (12.0-20.0); CO2, Blood 28 mmol/L (21-32); Calcium, Blood 8.8 mg/dL (8.5-10.1); Chloride, Blood 111 mmol/L (98-108); Creatinine, Blood 1.57 mg/dL (0.60-1.20); Glomerular Filtration Rate 45 (60-); Glucose, Blood 122 mg/dL (70-99); Phosphorus, Blood 3.7 mg/dL (2.5-4.9); Potassium, Blood 4.1 mmol/L (3.5-5.5); Sodium, Blood 146 mmol/L (136-145)
--- NOTE | 2020-03-07 04:45 | NUR ---
END OF SHIFT SUMMARY NO ACUTE CHANGES THIS SHIFT. VSS. REMAINS IN AFIB. BP STABLE. REMAINS FORGETFUL AND REQUIRES MUCH WHILE IN ROOM. PT CAN BE DEMANDING BUT HAS BEEN POLITE AND RESPECTFUL WITH STAFF. PT CONTINUALLY C/O STUFFY NOSE BUT DOESN'T CARE FOR NASAL SPRAY. REMAINS AT 5-6L NC.MANNING PATENT AND DRAINING, PT PUTTING OUT VERY LITTL URINE, ESPECIALLY WITH CONTEXT OF BUMEX GTT. PT FOLLOWING FLUID RESTRICTION ONLYDUE TO STAFF LIMITING ICE CHIP INTAKE. PT REQUIRING CONSTANT REPOSITIONING OF TESTICLES DUE TO EDEMA. POWERGLIDE REMAINS INTACT, PULLS BLOOD WITH POSITIONING.OTHERWISE, PT HAS APPEARED TO HAVE BEEN ABLE TO SLEEP AT DIFFERENT TIMES THIS SHIFT. BED ALARM IN PLACE. WILL CNTINUE TO MONITOR UNTIL SHIFT CHANGE.
--- NOTE | 2020-03-07 08:55 | NUR ---
MD NOTIFICATION: SPOKE WITH DR. IGLESIAS REGARDING PLAN OF CARE. STATES SHE ADJUSTED PATIENT'S MEDICATIONS. STATED TO LEAVE THE BUMEX AT 10ML/HR CONTINUOUS INFUSION. STATES TO TRY TO WEAN DOWN OXYGEN.
--- NOTE | 2020-03-07 08:55 | NUR ---
MD NOTIFICATION: SPOKE WITH DR. IGLESIAS REGARDING PLAN OF CARE. STATES SHE ADJUSTED PATIENT'S MEDICATIONS. STATED TO LEAVE THE BUMEX AT 10MG/HR CONTINUOUS INFUSION. STATES TO TRY TO WEAN DOWN OXYGEN.
--- NOTE | 2020-03-07 09:38 | NUR ---
NOTIFICATION: CALLED DR. IGLESIAS TO CLARIFY BUMEX ORDER. SHE STATES THAT SHE PUT IN ORDERS TO CHANGE IT TO 20ML/HR BUT SHE WANTS IT AT 10ML/HR. ORDERS RECEIVED FOR BUMEX 10ML/HR. PUT IN EMAR.
--- NOTE | 2020-03-07 09:38 | NUR ---
NOTIFICATION: CALLED DR. IGLESIAS TO CLARIFY BUMEX ORDER. SHE STATES THAT SHE PUT IN ORDERS TO CHANGE IT TO 20MG/HR BUT SHE WANTS IT AT 10MG/HR. ORDERS RECEIVED FOR BUMEX 10MG/HR. PUT IN EMAR.
--- NOTE | 2020-03-07 12:52 | NUR ---
NOTIFICATION: CALLED DR. IGLESIAS TO CLARIFY BUMEX ORDER. SHE STATES THAT SHE PUT IN ORDERS TO CHANGE IT TO 20MG/HR BUT SHE WANTS IT TO CONTINUE AT THE CURRENT RATE OF 10ML/HR. ORDERS RECEIVED FOR BUMEX 10ML/HR. PUT IN EMAR.
--- NOTE | 2020-03-07 18:37 | NUR ---
: CALLED DR. IGLESIAS. NOTIFIED HER PATIENT HAD 300 MLS URINE OUTPUT THIS SHIFT. ORDERS RECEIVED TO INCREASE BUMEX DRIP TO 20MLS/HR (2MG/HR). READ BACK AND VERIFIED.
--- NOTE | 2020-03-07 19:18 | NUR ---
SHIFT SUMMARY: PATIENT ORIENTED TO SELF AND FAMILY ONLY. REPOSITIONED FREQUENTLY. WEANED DOWN TO 1L O2 VIA NC. HAS DENIED CHEST PAIN. REPORTS SHORTNESS OF BREATH WHEN LAYING FLAT FOR REPOSITIONING. 300 MLS OUT VIA MANNING THIS SHIFT, MD AWARE, ORDERS RECEIVED TO INCREASE BUMEX TO 20 MLS/HR, NON DESTRUCTIVE TESTING SPECIALIST RNS AWARE. UP TO CHAIR X2 WITH LIFT. PREVENTATIVE ALLEVYN DRESSING APPLIED TO COCCYX AND L HEEL. ALLEVYN TREATMENT DRESSING APPLIED TO L INNER THIGH. NEW PICTURES TAKEN, SEE CHART. MULTIPLE DRY WOUNDS TO ABD, PANNUS, SCROTUM, BILATERAL THIGHS, AND RLE. REPORT GIVEN TO ONCOMING RN.
[2020-03-08 04:16] LABS: BASOPHILS ABSOLUTE AUTO 0.07 K/mm3 (0.00-0.23); BASOPHILS PERCENT AUTO 1 % (0-2); EOSINOPHILS ABSOLUTE AUTO 0.24 K/mm3 (0.00-0.68); EOSINOPHILS PERCENT AUTO 3 % (0-6); Hematocrit 38.5 % (37.0-53.0); Hemoglobin 12.6 g/dL (13.5-17.5); IMMATURE GRAN ABSOLUTE AUTO 0.03 K/mm3 (0.00-0.10); IMMATURE GRAN PERCENT AUTO 0 % (0-1); LYMPHOCYTES ABSOLUTE AUTO 1.32 K/mm3 (0.84-5.20); LYMPHOCYTES PERCENT AUTO 17 % (21-46); MONOCYTES ABSOLUTE AUTO 0.82 K/mm3 (0.16-1.47); MONOCYTES PERCENT AUTO 11 % (4-13); Mean Corpuscular HGB 33.1 pg (26.0-34.0); Mean Corpuscular HGB Conc 32.7 g/dL (31.5-36.5); Mean Corpuscular Volume 101 fL (80-100); Mean Platelet Volume 11.8 fL (9.1-12.4); NEUTROPHILS ABSOLUTE AUTO 5.19 K/mm3 (1.96-9.15); NEUTROPHILS PERCENT AUTO 68 % (41-73); Platelet Count 136 K/mm3 (150-400); RDW Coefficient Variation 15.8 % (11.7-14.2); RDW Standard Deviation 57.7 fL (35.1-46.3); Red Blood Cell Count 3.81 M/mm3 (4.30-5.90); White Blood Cell Count 7.67 K/mm3 (4.00-11.30)
[2020-03-08 04:37] LABS: Albumin, Blood 3.4 g/dL (3.4-5.0); Anion Gap 6 mmol/L (6-16); Blood Urea Nitrogen 50 mg/dL (8-24); Bun/Creatinine Ratio 29.8 (12.0-20.0); CO2, Blood 29 mmol/L (21-32); Calcium, Blood 9.1 mg/dL (8.5-10.1); Chloride, Blood 107 mmol/L (98-108); Creatinine, Blood 1.68 mg/dL (0.60-1.20); Glomerular Filtration Rate 42 (60-); Glucose, Blood 110 mg/dL (70-99); Magnesium, Blood 2.2 mg/dL (1.6-2.4); Phosphorus, Blood 3.6 mg/dL (2.5-4.9); Potassium, Blood 3.7 mmol/L (3.5-5.5); Sodium, Blood 142 mmol/L (136-145)
--- NOTE | 2020-03-08 05:31 | NUR ---
SHIFT SUMMARY PT'S PAIN WAS DIFFICULT TO CONTROL T/O THE SHIFT, FREQUENT REPOSITIONING ABOUT EVERY HOUR OR MORE. PT STATES PAIN IN BUTT AND SCROTUM. FREQUENTLY SHOUTED OUT IN PAIN, WHEN I WOULD GO INTO PT'S ROOM AND TALK WITH HIM ABOUT HIS PAIN HE WOULD FALL ASLEEP IMMEDIATLY AFTER TALKING. 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 EDEMA 2+ AROUND ABD AND BUTT. RIGHT FOOT GREAT TOE HAD A BROKEN NAIL AND WAS OOZING BLOOD, PLACED A BANDAID. DRESSING ON R HEEL, L INNER THIGH, AND PROPHYLACTICALLY ON COCCYX. PT HAS SCABS T/O. O2 SATS ON THE LOW 90'S TO HIGH 80'S ON 1LPM VIA NC. BP LOW 100'S SYSTOLIC AND PULSE 70-80'S. PT DID NOT WANT HIS PRN NASAL SPRAY T/O THE NIGHT, HE SAID HE NO LONGER NEEDED IT BECAUSE HE WAS NO LONGER "STUFFED UP". PT DID SHOW SIGNS OF MILD CONFUSION, WOULD ASK WHAT DAY IT WAS, ACKNOWLEDGE IT, THEN ASK AGAIN. OTHERWISE PT WAS ALERT, ORIENTED, AND ABLE TO FOLLOW DIRECTIONS. WILL CONTINUE TO MONITOR UNTIL SHIFT CHANGE.
--- NOTE | 2020-03-08 06:29 | NUR ---
TIME CHANGE DAYLIGHT SAVINGS, CLOCKS SET BACK 1HR AT 0200 TO 0100.
--- NOTE | 2020-03-08 07:59 | NUR ---
BUMEX DECREASED TO 10ML/HR PER DR. IGLESIAS.
[2020-03-08] MEDS ORDERED: AMLO5 PO (13:29)
[2020-03-08] MEDS ORDERED: METF500C PO (13:31)
[2020-03-08] MEDS ORDERED: OXYB5 PO (13:34)
--- NOTE | 2020-03-08 17:24 | NUR ---
SHIFT ASSESMENT; A/A/OX3 WITH INTERMITANT FORGETFULLNESS. 1L FLUID RESTRICTION IN PLACE, EDUCATED REGARDING IMPORTANCE. MANNING CATH IN PLACE DRAINING CLEAR STRAW COLORED URINE. REPOSITIONED Q2 THROUGHOUT SHIFT. BUMEX GTT AT 10ML/HR PER ORDERS. [place]STATIN TO YEAST AREAS AND MEPILEX TO RIGHT HEEL. DEPENDANT EDEMA TO GROIN, INNER THIGHS AND ABDOMEN. NO ACUTE MEDICAL CHANGES DURING SHIFT. WILL CONTINUE TO MONITOR AND TREAT UNTIL SHIFT CHANGE.
[2020-03-09 05:34] LABS: Hematocrit 37.6 % (37.0-53.0); Hemoglobin 12.1 g/dL (13.5-17.5)
[2020-03-09 05:50] LABS: Albumin, Blood 3.3 g/dL (3.4-5.0); Anion Gap 8 mmol/L (6-16); Blood Urea Nitrogen 55 mg/dL (8-24); CO2, Blood 29 mmol/L (21-32); Chloride, Blood 107 mmol/L (98-108); Creatinine, Blood 1.72 mg/dL (0.60-1.20); Glomerular Filtration Rate 41 (60-); Glucose, Blood 102 mg/dL (70-99); Magnesium, Blood 2.1 mg/dL (1.6-2.4); Phosphorus, Blood 3.6 mg/dL (2.5-4.9); Potassium, Blood 3.6 mmol/L (3.5-5.5); Sodium, Blood 144 mmol/L (136-145)
--- NOTE | 2020-03-09 06:11 | NUR ---
SHIFT SUMMARY PT WAS ABLE TO SLEEP A MAJORITY OF THE NIGHT AND STATED MINIMAL PAIN WAS COMFORTABLE. DRESSINGS WERE CHANGED ON R GREAT TOE AND R HEEL. R FOOT WAS PLACED IN A HEEL PAD TO PROTECT TOE PT WOULD KICK FOOT OF BED AND BREAK OPEN SCAB. NAIL ON GREAT TOE IS PULLING OFF AND BLEEDING. GAUZ, TRIPLE ANTIBIOTIC AND PADDING WAS PLACED TO PROTECT TOE. IV DRESSING WAS CHANGED. BP AND HR STABLE, O2 SATS IN THE LOW 90'S, PT ON 2LPM VIA NC. SCROTUM SHOWED NEW SKIN BREAKAGE ON THE LEFT SIDE, NO DRAINAGE, ABOUT 2 CM LONG, PICTURES IN CHART. WILL CONTINUE TO MONITOR UNTIL SHIFT CHANGE.
[2020-03-09] MEDS ORDERED: Acidophilus1 EAC1 PO (13:31)
[2020-03-09] MEDS ORDERED: METO5 PO (13:32)
[2020-03-09] MEDS ORDERED: SALINE NASAL SPRAY (13:34)
[2020-03-09] MEDS ORDERED: BUME2 PO (13:34)
--- NOTE | 2020-03-09 17:01 | NUR ---
SHIFT SUMMARY; DC'D TO HOME VIA GURNEY BY EMS. A/A/OX3 AT TIME OF DISCHARGE. MANNING LEFT IN PLACE PER ORDERS, RX PHONED INTO [facility] BY ALYSON RAMIREZ. WRITTEN INSTRUCTIONS SENT HOME WITH PT WITH CLEAR UNDERSTANDING.
== END 2020-03-09 16:35 | disposition home health service (06) | DRG 291 ==
LOC: ER 23:34 → MEDS 02-27 01:04 → ICUW 03-01 18:55 → PCU 03-03 13:15
PROVIDERS: Emergency Medicine; Family Medicine; Internal Medicine; Internal Medicine Nephrology; ADMIT Internal Medicine
DX: I13.0 Hypertensive heart and chronic kidney disease with heart failure and stage 1 through stage 4 chronic kidney disease, or unspecified chronic kidney disease (principal); J96.01 Acute respiratory failure with hypoxia; I50.23 Acute on chronic systolic (congestive) heart failure; N17.9 Acute kidney failure, unspecified; E87.1 Hypo-osmolality and hyponatremia; B37.49 Other urogenital candidiasis; E87.0 Hyperosmolality and hypernatremia; I48.21 Permanent atrial fibrillation; Z68.43 Body mass index [BMI] 50.0-59.9, adult; E11.22 Type 2 diabetes mellitus with diabetic chronic kidney disease; E11.51 Type 2 diabetes mellitus with diabetic peripheral angiopathy without gangrene; N18.2 Chronic kidney disease, stage 2 (mild); E66.01 Morbid (severe) obesity due to excess calories; G47.33 Obstructive sleep apnea (adult) (pediatric); E87.5 Hyperkalemia; I25.10 Atherosclerotic heart disease of native coronary artery without angina pectoris; I95.9 Hypotension, unspecified; E11.42 Type 2 diabetes mellitus with diabetic polyneuropathy; N40.0 Benign prostatic hyperplasia without lower urinary tract symptoms; I08.2 Rheumatic disorders of both aortic and tricuspid valves; E88.09 Other disorders of plasma-protein metabolism, not elsewhere classified; Z66 Do not resuscitate; D63.1 Anemia in chronic kidney disease; R80.9 Proteinuria, unspecified; R31.29 Other microscopic hematuria; Z95.5 Presence of coronary angioplasty implant and graft; I25.2 Old myocardial infarction; Z89.512 Acquired absence of left leg below knee; Z79.4 Long term (current) use of insulin; Z79.82 Long term (current) use of aspirin; Z87.891 Personal history of nicotine dependence
CPT/HCPCS: 36415; 36600; 51702; 71045; 71046; 71250; 72193; 76770; 80053; 80061; 80069; 80202; 81001; 81050; 82164; 82550; 82803; 82947; 83036; 83605; 83735; 83880; 84156; 84484; 85014; 85018; 85025; 85027; 85651; 86141; 87086; 93005; 93010; 93308; 94660; 94761; 94762; 96374-59; 97110; 97161; 97530; 98960; 99285-25; A9270; A9270-GY; C1751; C8929; J0610; J0696; J1650; J1815; J1940; J2405; J3370; J7030; J7040; J7050; P9046; Q9957; Q9967